=== PATIENT | male | born 1955 | race Caucasian/White ===

== ENCOUNTER 2021-03-22 20:24 | Inpatient (IN) | payer OTHER ==
[~2021-03-22] VITALS: Ht 185.4 cm; Wt 75.0 kg
--- NOTE | 2021-03-22 20:42 | NUR ---
PT TRANSFERRED FROM [place] FOR FURTHER EVALUATION ON MASS FOUND ON LIVER. ASSESSMENT DONE AND PT HAS BEEN SEEN BY PA.
[2021-03-22] MEDS ORDERED: MORPHINE SULFATE 4 MG/ML, 1ML IVPush PRN (22:00)
[2021-03-22] MEDS ORDERED: NICOTINE 21 MG/24 HR PATCH.TD24 TD ONE (22:00)
[2021-03-22] MEDS ORDERED: SODIUM CHLORIDE 0.9% 1,000ML IVBOLUS ONE (22:00)
[2021-03-22] MEDS ORDERED: ONDANSETRON 2MG/ML, 2ML IVPush ONE (22:00)
[2021-03-22] MEDS ORDERED: ONDANSETRON 2MG/ML, 2ML ONE (22:13)
[2021-03-22] MEDS ORDERED: NICOTINE 21 MG/24 HR PATCH.TD24 ONE (22:14)
[2021-03-22] MEDS ORDERED: MORPHINE SULFATE 4 MG/ML, 1ML ONE (22:14)
--- NOTE | 2021-03-22 22:27 | NUR ---
MEDS GIVEN CHARTED. 5 RIGHTS VERIFIED. PT WAS WANTING TO GO HOME. DR GUTIERREZ AND THIS RN TALKED TO PT DISCUSSING POC. PT CALMED DOWN, WAS HAVING INCREASED BACK PAIN FROM LAYING HERE AND AT [facility] FOR EXTENDED AMOUNT OF TIME. PT NOW RESTING QUIETLY AFTER MEDS, SMALL AMOUNT OF ICE CHIPS PROVIDED FOR COMFORT. VS UPDATED. PT TO BE ADMITTED, ROOM ASSIGNMENT PENDING, PT AWARE OF ADMISSION.
--- NOTE | 2021-03-22 22:50 | NUR ---
O2 ON AT 2L/M NC DUE TO O2 DOWN TO 80'S. PT STATES + RELIEF IN PAIN.
--- NOTE | 2021-03-23 00:24 | NUR ---
REPORT TO PATRICK QUINN. PT TO BE ADMITTED TO ONCOLOGY. PT UPDATED ON POC. VS UPDATED.
[2021-03-23] MEDS ORDERED: UNKNOWN BP MED (00:30)
[2021-03-23] MEDS ORDERED: LISINOPRIL (00:30)
[2021-03-23 01:22] VITALS: BP 151/89
[2021-03-23] MEDS: morphine SULFATE 10 MG/ML, 1ML IVPush PRN ×6 (02:29→21:06)
[2021-03-23] MEDS ORDERED: ONDANSETRON 2MG/ML, 2ML IVPush PRN (02:30)
[2021-03-23] MEDS ORDERED: BISACODYL 10 MG SUPP PR PRN (02:30)
[2021-03-23] MEDS ORDERED: ENALAPRILAT 1.25 MG/ML, 2ML IVPush PRN (02:30)
[2021-03-23] MEDS ORDERED: LACTATED RINGERS 1,000 ML IV SCH (02:30)
[2021-03-23 05:54] LABS: BASOPHILS % (AUTO) 2 % (0-1); EOSINOPHILS % (AUTO) 1 % (1-7); LYMPHOCYTES % (AUTO) 24 % (22-44); MEAN CORPUSCULAR HEMOGLOBIN 30.2 pg (27.5-34.5); MEAN CORPUSCULAR HGB CONC 33.6 g/dL (33.2-36.2); MEAN PLATELET VOLUME 7.5 fL (7.4-10.4); MONOCYTES % (AUTO) 10 % (2-9); NEUTROPHILS % (AUTO) 64 % (42-75); PLATELET COUNT 366 x10^3/uL (130-400); RED BLOOD COUNT 4.78 x10^6/uL (4.38-5.82); RED CELL DISTRIBUTION WIDTH 15.1 % (9.4-14.8)
[2021-03-23 05:56] LABS: ALBUMIN 2.3 g/dL (3.4-5.0); CALCIUM 8.2 mg/dL (8.5-10.1)
[2021-03-23 06:00] LABS: ALANINE AMINOTRANSFERASE 106 U/L (12-78); ALKALINE PHOSPHATASE 222 U/L (45-117); CREATININE 0.72 mg/dL (0.7-1.3); TOTAL PROTEIN 6.1 g/dL (6.4-8.2)
[2021-03-23 06:11] LABS: ANION GAP 6 mmol/L (5-15); CHLORIDE 102 mmol/L (98-107)
[2021-03-23 06:51] VITALS: BP 149/81
[2021-03-23] MEDS ORDERED: AMLO-211 PO (09:48)
[2021-03-23] MEDS ORDERED: LISI1TAB39 PO (09:48)
[2021-03-23 10:11] LABS: INTERNATIONAL NORMALIZED RATIO 1.07 (0.93-1.1); PROTHROMBIN TIME 11.4 Seconds (9.6-11.5)
[2021-03-23] MEDS ORDERED: MORPHINE SULFATE 4 MG/ML, 1ML ONE ×2 (11:10→14:15)
[2021-03-23 13:16] VITALS: BP 150/88
[2021-03-23] MEDS ORDERED: POTASSIUM CHLORIDE 20 MEQ in SODIUM CHLORIDE 0.9% 250 ML IV ONE (14:00)
[2021-03-23] MEDS ORDERED: LIDOCAINE 1%, 10ML ONE (14:28)
[2021-03-23] MEDS ORDERED: FENTANYL PF 100 MCG/2ML ONE (15:21)
[2021-03-23] MEDS ORDERED: MIDAZOLAM 1 MG/ML, 5ML ONE (15:21)
[2021-03-23] MEDS ORDERED: FLUMAZENIL 0.1 MG/1 ML, 5ML ONE (15:21)
[2021-03-23] MEDS ORDERED: NALOXONE 1 MG/ML, 2ML ONE (15:21)
[2021-03-23] MEDS: POTASSIUM CHLORIDE 10 MEQ in D5%-LACTATED RINGERS 1,000 ML IV SCH (17:38)
[2021-03-23 19:57] VITALS: BP 168/69
[2021-03-23 20:51] VITALS: BP 166/89
[2021-03-24] MEDS: morphine SULFATE 10 MG/ML, 1ML IVPush PRN ×8 (00:12→22:37)
[2021-03-24 00:13] VITALS: BP 161/86
[2021-03-24] MEDS: POTASSIUM CHLORIDE 10 MEQ in D5%-LACTATED RINGERS 1,000 ML IV SCH ×3 (00:48→17:52)
[2021-03-24 06:53] LABS: BASOPHILS % (AUTO) 1 % (0-1); EOSINOPHILS % (AUTO) 1 % (1-7); LYMPHOCYTES % (AUTO) 25 % (22-44); MEAN CORPUSCULAR HEMOGLOBIN 29.9 pg (27.5-34.5); MEAN CORPUSCULAR HGB CONC 33.2 g/dL (33.2-36.2); MEAN PLATELET VOLUME 7.1 fL (7.4-10.4); MONOCYTES % (AUTO) 8 % (2-9); NEUTROPHILS % (AUTO) 65 % (42-75); PLATELET COUNT 364 x10^3/uL (130-400); RED BLOOD COUNT 5.31 x10^6/uL (4.38-5.82); RED CELL DISTRIBUTION WIDTH 15.2 % (9.4-14.8)
[2021-03-24 07:02] LABS: ALBUMIN 2.6 g/dL (3.4-5.0); ANION GAP 8 mmol/L (5-15); CALCIUM 8.5 mg/dL (8.5-10.1); CHLORIDE 104 mmol/L (98-107)
[2021-03-24 07:17] LABS: ALANINE AMINOTRANSFERASE 90 U/L (12-78); ALKALINE PHOSPHATASE 220 U/L (45-117); BILIRUBIN,TOTAL 1.4 mg/dL (0.2-1.0); CREATININE 0.55 mg/dL (0.7-1.3); TOTAL PROTEIN 6.9 g/dL (6.4-8.2)
[2021-03-24 09:22] VITALS: BP 168/78
[2021-03-24 13:47] VITALS: BP 158/87
[2021-03-24 19:56] VITALS: BP 161/76
[2021-03-25 02:13] VITALS: BP 163/91
[2021-03-25] MEDS: POTASSIUM CHLORIDE 10 MEQ in D5%-LACTATED RINGERS 1,000 ML IV SCH ×2 (02:15→12:52)
[2021-03-25] MEDS: morphine SULFATE 10 MG/ML, 1ML IVPush PRN ×6 (02:15→21:54)
[2021-03-25 06:26] LABS: BASOPHILS % (AUTO) 1 % (0-1); EOSINOPHILS % (AUTO) 2 % (1-7); LYMPHOCYTES % (AUTO) 23 % (22-44); MEAN CORPUSCULAR HEMOGLOBIN 30.5 pg (27.5-34.5); MEAN CORPUSCULAR HGB CONC 33.8 g/dL (33.2-36.2); MEAN PLATELET VOLUME 7.4 fL (7.4-10.4); MONOCYTES % (AUTO) 9 % (2-9); NEUTROPHILS % (AUTO) 65 % (42-75); PLATELET COUNT 333 x10^3/uL (130-400); RED BLOOD COUNT 5.16 x10^6/uL (4.38-5.82); RED CELL DISTRIBUTION WIDTH 15.1 % (9.4-14.8)
[2021-03-25 06:41] LABS: CHLORIDE 103 mmol/L (98-107)
[2021-03-25 06:49] LABS: ALANINE AMINOTRANSFERASE 73 U/L (12-78); ALBUMIN 2.2 g/dL (3.4-5.0); ALKALINE PHOSPHATASE 194 U/L (45-117); ANION GAP 8 mmol/L (5-15); BILIRUBIN,TOTAL 1.3 mg/dL (0.2-1.0); CALCIUM 8.8 mg/dL (8.5-10.1); CREATININE 0.53 mg/dL (0.7-1.3); TOTAL PROTEIN 6.7 g/dL (6.4-8.2)
[2021-03-25 08:48] VITALS: BP 155/90
[2021-03-25 13:30] VITALS: BP 152/85
[2021-03-25] MEDS ORDERED: POTASSIUM CHLORIDE 40 MEQ in SODIUM CHLORIDE 0.9% 500 ML IV ONE (16:30)
[2021-03-25 19:19] VITALS: BP 155/84
[2021-03-25 22:49] VITALS: BP 133/89
[2021-03-26] MEDS: morphine SULFATE 10 MG/ML, 1ML IVPush PRN ×6 (02:03→21:16)
[2021-03-26] MEDS: POTASSIUM CHLORIDE 10 MEQ in D5%-LACTATED RINGERS 1,000 ML IV SCH ×2 (02:04→16:44)
[2021-03-26 02:17] VITALS: BP 149/95
[2021-03-26 07:10] VITALS: BP 153/84
[2021-03-26 07:17] LABS: ANION GAP 8 mmol/L (5-15); CHLORIDE 103 mmol/L (98-107); CREATININE 0.53 mg/dL (0.7-1.3)
[2021-03-26 07:42] LABS: BASOPHILS % (AUTO) 1 % (0-1); EOSINOPHILS % (AUTO) 2 % (1-7); LYMPHOCYTES % (AUTO) 25 % (22-44); MEAN CORPUSCULAR HEMOGLOBIN 30.1 pg (27.5-34.5); MEAN CORPUSCULAR HGB CONC 33.4 g/dL (33.2-36.2); MEAN PLATELET VOLUME 7.7 fL (7.4-10.4); MONOCYTES % (AUTO) 11 % (2-9); NEUTROPHILS % (AUTO) 62 % (42-75); PLATELET COUNT 318 x10^3/uL (130-400); RED BLOOD COUNT 5.15 x10^6/uL (4.38-5.82); RED CELL DISTRIBUTION WIDTH 15.2 % (9.4-14.8)
[2021-03-26] MEDS ORDERED: POTASSIUM CHLORIDE 40 MEQ in SODIUM CHLORIDE 0.9% 500 ML IV ONE (10:00)
[2021-03-26 12:51] VITALS: BP 158/91
[2021-03-26 19:59] VITALS: BP 152/101
[2021-03-27 00:25] VITALS: BP 156/96
[2021-03-27] MEDS: POTASSIUM CHLORIDE 10 MEQ in D5%-LACTATED RINGERS 1,000 ML IV SCH ×2 (01:21→09:56)
[2021-03-27] MEDS: morphine SULFATE 10 MG/ML, 1ML IVPush PRN ×4 (04:11→15:40)
[2021-03-27 04:54] LABS: BASOPHILS % (AUTO) 1 % (0-1); EOSINOPHILS % (AUTO) 2 % (1-7); LYMPHOCYTES % (AUTO) 24 % (22-44); MEAN CORPUSCULAR HEMOGLOBIN 30.4 pg (27.5-34.5); MEAN CORPUSCULAR HGB CONC 33.8 g/dL (33.2-36.2); MEAN PLATELET VOLUME 7.2 fL (7.4-10.4); MONOCYTES % (AUTO) 11 % (2-9); NEUTROPHILS % (AUTO) 63 % (42-75); PLATELET COUNT 326 x10^3/uL (130-400); RED BLOOD COUNT 5.07 x10^6/uL (4.38-5.82); RED CELL DISTRIBUTION WIDTH 15.3 % (9.4-14.8)
[2021-03-27 05:07] LABS: CALCIUM 8.7 mg/dL (8.5-10.1); CREATININE 0.57 mg/dL (0.7-1.3)
[2021-03-27 05:22] LABS: ANION GAP 7 mmol/L (5-15); CHLORIDE 100 mmol/L (98-107)
[2021-03-27 08:17] VITALS: BP 170/89
[2021-03-27] MEDS: LISINOPRIL 20 MG TABLET PO SCH (11:40)
[2021-03-27] MEDS: AMLODIPINE 5 MG TABLET PO SCH ×2 (11:40→20:11)
[2021-03-27 12:40] VITALS: BP 162/92
[2021-03-27] MEDS: HEPARIN 5,000 UNITS/ML, 1ML SQ SCH (13:18)
[2021-03-27 19:20] VITALS: BP 158/87
[2021-03-27] MEDS: OXYcodone/APAP 5/325MG TABLET PO PRN (19:52)
[2021-03-27] MEDS: CALCIUM CARBONATE 500 MG TAB.CHEW PO PRN (22:33)
[2021-03-28] MEDS: HEPARIN 5,000 UNITS/ML, 1ML SQ SCH ×3 (00:42→23:51)
[2021-03-28] MEDS: CALCIUM CARBONATE 500 MG TAB.CHEW PO PRN ×4 (00:45→20:28)
[2021-03-28 00:46] VITALS: BP 153/88
[2021-03-28] MEDS: OXYcodone/APAP 5/325MG TABLET PO PRN ×4 (03:26→23:51)
[2021-03-28 06:19] VITALS: BP 145/83
[2021-03-28] MEDS: LISINOPRIL 20 MG TABLET PO SCH (08:30)
[2021-03-28] MEDS: AMLODIPINE 5 MG TABLET PO SCH ×2 (08:30→20:28)
[2021-03-28 12:48] VITALS: BP 121/82
[2021-03-28] MEDS: ALUMINUM/MAG/SIMETHICONE 30 ML UDC PO PRN (13:41)
[2021-03-28 18:36] VITALS: BP 146/87
[2021-03-29 00:56] VITALS: BP 146/83
[2021-03-29] MEDS: ALUMINUM/MAG/SIMETHICONE 30 ML UDC PO PRN (01:11)
[2021-03-29] MEDS: CALCIUM CARBONATE 500 MG TAB.CHEW PO PRN ×2 (05:34→12:28)
[2021-03-29] MEDS ORDERED: ALUMINUM/MAG/SIMETHICONE 30 ML UDC PO PRN (06:00)
[2021-03-29 06:51] VITALS: BP 130/77
[2021-03-29] MEDS: OXYcodone/APAP 5/325MG TABLET PO PRN ×2 (07:25→14:20)
[2021-03-29] MEDS ORDERED: PANTOPRAZOLE 40MG TABLET PO SCH (09:00)
[2021-03-29] MEDS: AMLODIPINE 5 MG TABLET PO SCH (09:49)
[2021-03-29] MEDS: LISINOPRIL 20 MG TABLET PO SCH (09:49)
[2021-03-29 12:17] VITALS: BP 122/85
[2021-03-29] MEDS ORDERED: MAG355OR15 PO (12:24)
[2021-03-29] MEDS ORDERED: AMLO-150 PO (12:24)
[2021-03-29] MEDS ORDERED: POLY17PO5 PO (12:24)
[2021-03-29] MEDS ORDERED: PANT40TA6 PO (12:24)
[2021-03-29] MEDS ORDERED: OXYC1TAB14 PO (12:24)
[2021-03-29] MEDS: HEPARIN 5,000 UNITS/ML, 1ML SQ SCH (12:28)
== END 2021-03-29 16:00 | disposition home or self-care (01) | DRG 435 ==
LOC: ED 22:33 → 3N 23:01 → 4NW 03-25 23:10
PROVIDERS: ADMIT Internal Medicine; ATTEND Internal Medicine
PROC: 0FB23ZX Excision of Left Lobe Liver, Percutaneous Approach, Diagnostic (ICD-10-PCS; principal; 2021-03-23)
DX: C22.0 Liver cell carcinoma (principal); E43 Unspecified severe protein-calorie malnutrition; K31.1 Adult hypertrophic pyloric stenosis; Z68.22 Body mass index [BMI] 22.0-22.9, adult; K80.20 Calculus of gallbladder without cholecystitis without obstruction; Z68.21 Body mass index [BMI] 21.0-21.9, adult; F12.90 Cannabis use, unspecified, uncomplicated; F17.210 Nicotine dependence, cigarettes, uncomplicated; I10 Essential (primary) hypertension; Z20.822 Contact with and (suspected) exposure to COVID-19
CPT/HCPCS: 36415; 74240; 96361; 96374; 96375; 99285; J3490; J7121; 47000; 76942; 80048; 80053; 82105; 83735; 84100; 85025; 85610; 86301; 88307; 99156; 99157; G0378; J1644; J2250; J2405; J3010; J3480; J2270; J2310; J7030; J7040; J7050; J7120